=== PATIENT | male | born 1980 | race African-American/Black ===

== ENCOUNTER 2020-06-07 14:58 | Emergency (ER) | payer SELFPAY ==
[~2020-06-07] VITALS: Ht 182.9 cm; Wt 81.6 kg
--- NOTE | 2020-06-07 14:58 | NUR ---
PT BIB [facility] [address] C/O PARANOIA AND DELUSIONS. PT IS AAOX3, NOT IN RESPIRATORY DISTRESS, V/S STABLE, KEPT RESTED AND COMFORTABLE. WILL CONTINUE TO MONITOR, SITTER AT BEDSIDE.
--- NOTE | 2020-06-07 15:22 | NUR ---
PT SEEN AND EXAMINED BY .
--- NOTE | 2020-06-07 15:44 | NUR ---
PT AGREED FOR BLOOD DRAW.
--- NOTE | 2020-06-07 15:50 | NUR ---
PT STATED HE DOESNT WANT ANY TEST AND HE IS NOT SUICIDAL OR HOMICIDAL. AWARE.
--- NOTE | 2020-06-07 15:55 | NUR ---
"I WANT TO STAY HERE FOR NOW BUT I DONT WANT ANY BLOOD DRAW."
--- NOTE | 2020-06-07 15:59 | NUR ---
PT REFUSED BLOOD DRAW AGAIN. AWARE.
--- NOTE | 2020-06-07 15:59 | NUR ---
Patient does not wish to proceed with medical care recommended by Dr. WARD. Patient given information related to possible complications, up to and including , which could occur as a result of leaving the hospital at this time. Patient verbalizes understanding of risks involved due to leaving against medical advice. Patient has signed AMA form.
[2020-06-07 16:01] VITALS: BP 129/78
== END 2020-06-07 16:04 | disposition left against medical advice (07) ==
LOC: ER 15:03
DX: F20.9 Schizophrenia, unspecified (principal)

== ENCOUNTER 2020-06-24 19:20 | Emergency (ER) | payer SELFPAY ==
[~2020-06-24] VITALS: Ht 180.3 cm; Wt 70.3 kg
[2020-06-24 19:23] VITALS: BP 124/88
--- NOTE | 2020-06-24 19:26 | NUR ---
URINE COLLECTED. SENT TO LAB
--- NOTE | 2020-06-24 19:36 | NUR ---
TO ER BED 14 BIBEMS C/O SI WITHOUT SPECIFIC PLAN. "I JUST FEEL PARANOID". ER MD AT BEDSIDE TO EVAL PT WITH ORDERS RECIEVED. PLACE PT ON HOSPITAL GOWN, ALL BELONGINGS REMOVED FROM ROOM. 1:1 SITTER AT BEDSIDE FOR PT SAFETY.
--- NOTE | 2020-06-24 20:15 | NUR ---
pt wanded per security personal belongings placed in locker for pt safety.
--- NOTE | 2020-06-24 20:46 | NUR ---
PT KEEPS WANDERING AROUND, KEEPS REFUSING TO STAY IN BED AND REFUSING BLOOD DRAW ORDERED BY ER . ER MD GRANT AWARE.
--- NOTE | 2020-06-24 20:56 | NUR ---
PT STILL REFUSE BLOOD DRAW, ER MD AT BEDSIDE TALKING TO PT. PT WANTS TO LEAVE ER. PT DENIES SI/HI AT THIS TIME. PT OK TO LEAVE PER ER MD. PT REFUSE TO SIGN AMA AND HOMELESS WAIVER FORM.
== END 2020-06-24 21:10 | disposition left against medical advice (07) ==
LOC: ER 19:22
DX: F32.9 Major depressive disorder, single episode, unspecified (principal); F17.200 Nicotine dependence, unspecified, uncomplicated; R94.31 Abnormal electrocardiogram [ECG] [EKG]; F20.9 Schizophrenia, unspecified; Z59.0 Homelessness

== ENCOUNTER 2020-06-24 23:08 | Emergency (ER) | payer SELFPAY ==
[~2020-06-24] VITALS: Ht 177.8 cm; Wt 70.3 kg
--- NOTE | 2020-06-24 23:08 | NUR ---
BIBSELF RETURNED AND ESCORTED BY [employer] FOR +SI NO SPECIFIC PLAN NOTED -HI., PT TO BED 15, COOPERATIVE AT THIS TIME, DENIES ANY SOB/CP. SI PRECAUTIONS STARTED, PLACED ON GOWN, BELONGINGS KEPT FOR SAFETY, VSS, NOT IN ANY DISTRESS, PENDING ER PROVIDER BRE
[2020-06-24] MEDS ORDERED: OLANZAPINE 10 MG VIAL IM ONE ×2 (23:23→23:30)
--- NOTE | 2020-06-24 23:37 | NUR ---
covid swab sent
[2020-06-24 23:43] LABS: POTASSIUM 3.6 mmol/L (3.5-5.1)
[2020-06-24 23:45] LABS: BASOPHILS # (AUTO) 0.1 /CMM (0.0-0.2); BASOPHILS % (AUTO) 2.1 % (0.0-2.0); EOSINOPHILS % (AUTO) 2.7 % (0.0-6.0); HEMATOCRIT 42 % (39-51); HEMOGLOBIN 13.7 g/dL (13.5-17.5); LYMPHOCYTES # (AUTO) 1.9 /CMM (0.8-4.8); LYMPHOCYTES % (AUTO) 42.1 % (20.0-44.0); MEAN CORPUSCULAR HGB CONC 33 g/dl (31.0-36.0); MEAN CORPUSCULAR VOLUME 89 fL (80-96); MONOCYTES # (AUTO) 0.4 /CMM (0.1-1.30); MONOCYTES % (AUTO) 8.7 % (2.0-12.0); NEUTROPHILS % (AUTO) 44.4 % (43.0-81.0); PLATELET COUNT (AUTO) 256 /CMM (150-450); RED BLOOD CELL COUNT(AUTO) 4.68 MIL/uL (4.5-6.0); WHITE BLOOD COUNT (AUTO) 4.6 K/uL (4.3-11.0)
[2020-06-24 23:48] LABS: BILIRUBIN,URINE NEGATIVE (NEGATIVE); COLOR,URINE YELLOW (YELLOW); LEUKOCYTE ESTERASE ,URINE NEGATIVE (NEGATIVE); NITRITE, URINE NEGATIVE (NEGATIVE); PROTEIN,URINE NEGATIVE (NEGATIVE); UGLUCOSE NEGATIVE (NEGATIVE)
[2020-06-24 23:49] LABS: ALBUMIN 4.3 g/dL (3.4-5.0); BILIRUBIN,DIRECT 0.2 mg/dL (0.0-0.2); BILIRUBIN,TOTAL 0.5 mg/dL (0.2-1.0); TOTAL PROTEIN, SERUM 7.7 g/dL (6.4-8.2)
[2020-06-24 23:55] LABS: BACTERIA,URINE None seen /HPF (None Seen); MUCUS,URINE Few /LPF (None Seen); RBC,URINE 21-50 /HPF (0-2); SQUAMOUS EPITHELIAL CELL,UR Few /HPF (None Seen); WBC,URINE 0-2 /HPF (0-3)
--- NOTE | 2020-06-25 01:06 | NUR ---
covid negative per lab
--- NOTE | 2020-06-25 08:00 | NUR ---
pt eatting breakfast vss cont to monitor.
--- NOTE | 2020-06-25 09:00 | NUR ---
Spoke to Avi, Intake from [facility] and was informed "No Beds available at this time. May have discharges after lunch"
--- NOTE | 2020-06-25 11:02 | NUR ---
JOSÉ CALLED BACK WILL BE HERE IN AN HOUR.
--- NOTE | 2020-06-25 13:14 | NUR ---
JOS[facility] ETA 20 MINUTES
[2020-06-25 16:14] VITALS: BP 115/68
== END 2020-06-25 16:15 ==
LOC: ER 23:10
DX: R45.851 Suicidal ideations (principal); F19.10 Other psychoactive substance abuse, uncomplicated; F20.9 Schizophrenia, unspecified; Z59.0 Homelessness; F17.200 Nicotine dependence, unspecified, uncomplicated; Z20.822 Contact with and (suspected) exposure to COVID-19
CPT/HCPCS: 36415; 80048; 80076; 80299; 80307; 80320; 81001; 85025; 87426; 96372; 99285; C9803; J3490; G0480